=== PATIENT | female | born 1960 | race Caucasian/White ===

== ENCOUNTER 2017-01-11 20:10 | Inpatient (IN) | payer BC, OTHER ==
[~2017-01-11] VITALS: Ht 162.6 cm; Wt 60.8 kg
--- NOTE | ~2017-01-11 | EKG ---
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 : 1960 Requested By: Karol Berumen Order Number: [id number] MD: Eduardo Cardoza Measurements Intervals [place] Rate: 82 P: 43 OR: 138 QRS: 12 QRSD: 107 T: 11 QT: 393 QTc: 459 Interpretive Statements Sinus rhythm RSR' in V1 or V2, right VCD or RVH Borderline T abnormalities, anterior leads Compared to ECG 02/27/2010 14:50:39 Right ventricular hypertrophy now present RSR' in V1 or V2 now present T-wave abnormality now present Incomplete right bundle-branch block no longer present Electronically Signed On 01-12-2017 11:29:07 CDT by Eduardo Cardoza [email or web address] <ELECTRONICALLY SIGNED> By: Eduardo Cardoza MD 01/12/17 1129 45 45 Eduardo Cardoza MD /EPI
[~2017-01-11 20:10] MED LIST: AMOXICILLIN875 MG PO; AZITHROMYCIN 2250 MG PO; BACTRIM DS TAB1 EACH PO; CIPROFLOXACIN500 M1 PO; DIAZEPAM 2MG TAB2 MG; IBUPROFEN 200200 M1 PO; NOHOMEMEDICATIONS; NORCO 5-325 TA1 EACH PO; OSTEOBYFLEX; PYRIDIUM200 MG PO; VALIUM2 MG PO; VITAMIN B COMP1 EACH; ZOFRAN4 MG PO
[2017-01-11 20:57] LABS: HEMATOCRIT 31.4 % (37.0-47.0); HEMOGLOBIN 10.4 gm/dL (12.0-15.0); MCH 30.8 pg (26.0-34.0); MCHC 33.2 g/dL (28.0-37.0); MCV 92.8 fL (80.0-100.0); PLATELET COUNT 313 thou/uL (150-400); RBC 3.38 mil/uL (4.20-5.00); RDW 15.7 % (10.5-14.5); WBC 29.8 thou/uL (4.0-11.0)
[2017-01-11 20:58] LABS: MANUAL DIFF YES
[2017-01-11 21:16] LABS: ALBUMIN 2.3 g/dL (3.4-5.0); ALKALINE PHOSPHATASE 60 U/L (46-116); ANION GAP 8 mmol/L (7-16); BUN 11 mg/dL (7-18); CALCIUM 6.3 mg/dL (8.5-10.1); CHLORIDE 113 mmol/L (98-107); CO2 22 mmol/L (21-32); CREATININE 0.6 mg/dL (0.6-1.0); GLUCOSE 85 mg/dL (74-106); SGOT 13 U/L (15-37); SGPT 21 U/L (30-65); SODIUM 143 mmol/L (136-145); TOTAL BILIRUBIN 0.3 mg/dL (<0.1-1.0); TOTAL PROTEIN 4.3 g/dL (6.4-8.2); TROPONIN-I < 0.04 ng/mL (<0.04-0.07)
[2017-01-11 21:20] LABS: POTASSIUM 2.6 mmol/L (3.5-5.1)
[2017-01-11 21:28] LABS: ABSOLUTE NEUTROPHILS 27.7 thou/uL (1.4-8.2); TOTAL CELL COUNT 200
[2017-01-11 21:43] LABS: URINE BILIRUBIN NEGATIVE (Negative); URINE BLOOD NEGATIVE (Negative); URINE COLOR YELLOW; URINE GLUCOSE-RANDOM* NEGATIVE (Negative); URINE KETONES NEGATIVE (Negative); URINE NITRITE NEGATIVE (Negative); URINE PROTEIN (DIPSTICK) NEGATIVE (Negative); URINE SPECIFIC GRAVITY <= 1.005 (1.003-1.035); URINE UROBILINOGEN 0.2 E.U./dl (0.2-1.0)
[2017-01-11 23:18] VITALS: BP 113/62
[2017-01-11 23:30] VITALS: BP 119/52
[2017-01-12 02:35] LABS: CREATININE 0.9 mg/dL (0.6-1.0)
[2017-01-12 02:55] LABS: MAGNESIUM 1.4 mg/dL (1.8-2.4)
[2017-01-12 02:59] LABS: CALCIUM 8.7 mg/dL (8.5-10.1); POTASSIUM 3.8 mmol/L (3.5-5.1)
[2017-01-12 04:00] VITALS: BP 479/44
[2017-01-12 06:08] LABS: HEMATOCRIT 29.8 % (37.0-47.0); HEMOGLOBIN 10.1 gm/dL (12.0-15.0); MCH 31.8 pg (26.0-34.0); MCHC 33.9 g/dL (28.0-37.0); MCV 93.8 fL (80.0-100.0); PLATELET COUNT 259 thou/uL (150-400); RBC 3.18 mil/uL (4.20-5.00); RDW 15.8 % (10.5-14.5); WBC 26.3 thou/uL (4.0-11.0)
[2017-01-12 06:14] LABS: MANUAL DIFF YES
[2017-01-12 07:14] LABS: ANISOCYTOSIS SLIGHT; TOTAL CELL COUNT 100
[2017-01-12 08:15] LABS: MAGNESIUM 3.3 mg/dL (1.8-2.4); POTASSIUM 4.6 mmol/L (3.5-5.1); TROPONIN-I < 0.04 ng/mL (<0.04-0.07)
[2017-01-12 08:40] VITALS: BP 106/59
[2017-01-12] MEDS ORDERED: LEVAQUIN 500 M500 M2 PO (09:28)
[2017-01-12 10:38] VITALS: BP 106/59
== END 2017-01-12 11:10 | disposition home or self-care (01) | DRG 203 ==
LOC: ER 20:10 → EROBS 22:23 → 3W 01-12 00:04
PROVIDERS: Nurse Practitioner Family
DX: J20.9 Acute bronchitis, unspecified (principal); E87.6 Hypokalemia; D72.829 Elevated white blood cell count, unspecified; D72.825 Bandemia; F41.9 Anxiety disorder, unspecified; I10 Essential (primary) hypertension; H66.92 Otitis media, unspecified, left ear; Z85.3 Personal history of malignant neoplasm of breast

== ENCOUNTER 2018-02-15 17:49 | Emergency (ER) | payer BC, OTHER ==
[~2018-02-15] VITALS: Ht 162.6 cm; Wt 60.8 kg
[~2018-02-15 17:49] MED LIST changes: +LEVAQUIN 500 M500 M2 PO
[2018-02-15] MEDS ORDERED: ACETAMINOPHEN325 M3 PO (18:59)
[2018-02-15 19:01] VITALS: BP 120/71
[2018-02-15] MEDS ORDERED: MOBIC15 MG PO (19:15)
== END 2018-02-15 19:32 | disposition home or self-care (01) ==
LOC: ER 17:49
DX: M70.71 Other bursitis of hip, right hip (principal); F41.9 Anxiety disorder, unspecified; K58.9 Irritable bowel syndrome, unspecified; Z85.3 Personal history of malignant neoplasm of breast; Z88.1 Allergy status to other antibiotic agents; Y93.89 Activity, other specified

== ENCOUNTER 2018-03-05 14:46 | Emergency (ER) | payer BC, OTHER ==
[~2018-03-05] VITALS: Ht 162.6 cm; Wt 59.0 kg
--- NOTE | ~2018-03-05 | EKG ---
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 : 1960 Requested By: Shana Eubanks Order Number: [id number] MD: Eduardo Cardoza Measurements Intervals [place] Rate: 67 P: 55 WV: 156 QRS: -11 QRSD: 95 T: 31 QT: 431 QTc: 455 Interpretive Statements Sinus rhythm RSR' in V1 or V2, right VCD or RVH Compared to ECG 01/11/2017 20:46:31 T-wave abnormality no longer present Electronically Signed On 03-05-2018 15:42:52 ASSISTANT VICE PRESIDENT by Eduardo Cardoza [email or web address] <ELECTRONICALLY SIGNED> By: Eduardo Cardoza MD 03/05/18 1542 1520 1520 Eduardo Cardoza MD /EPI
[~2018-03-05 14:46] MED LIST changes: +ACETAMINOPHEN325 M3 PO; +MOBIC15 MG PO
[2018-03-05 15:15] LABS: ABSOLUTE NEUTROPHILS 4.1 thou/uL (1.4-8.2); EOSINOPHILS 3.3 % (0.0-3.0); HEMATOCRIT 39.5 % (37.0-47.0); HEMOGLOBIN 13.6 gm/dL (12.0-15.0); LYMPHOCYTES 26.8 % (24.0-44.0); MCH 31.7 pg (26.0-34.0); MCHC 34.4 g/dL (28.0-37.0); MCV 92.1 fL (80.0-100.0); MONOCYTES 6.5 % (1.0-8.0); PLATELET COUNT 243 thou/uL (150-400); POLYS 62.4 % (36.0-66.0); RBC 4.28 mil/uL (4.20-5.00); RDW 13.3 % (10.5-14.5); WBC 6.5 thou/uL (4.0-11.0)
[2018-03-05 15:21] LABS: CALCIUM 9.1 mg/dL (8.5-10.1); CREATININE 0.8 mg/dL (0.6-1.0); POTASSIUM 3.5 mmol/L (3.5-5.1)
[2018-03-05 15:27] LABS: APTT 26.1 Seconds (24.5-32.8); PROTIME 10.3 Seconds (9.3-11.4)
[2018-03-05 15:43] LABS: URINE BILIRUBIN NEGATIVE (Negative); URINE BLOOD TRACE (Negative); URINE CLARITY CLEAR; URINE COLOR YELLOW; URINE GLUCOSE-RANDOM* NEGATIVE (Negative); URINE KETONES NEGATIVE (Negative); URINE LEUKOCYTES-REFLEX NEGATIVE (Negative); URINE NITRITE-REFLEX NEGATIVE (Negative); URINE PROTEIN (DIPSTICK) NEGATIVE (Negative); URINE SPECIFIC GRAVITY <= 1.005 (1.005-1.035); URINE UROBILINOGEN 0.2 E.U./dl (0.2-1.0)
[2018-03-05 20:16] VITALS: BP 108/55
== END 2018-03-05 20:18 | disposition home or self-care (01) ==
LOC: ER 14:46
PROVIDERS: Emergency Medicine
DX: H53.9 Unspecified visual disturbance (principal); H53.8 Other visual disturbances; R42 Dizziness and giddiness; F41.9 Anxiety disorder, unspecified; Z85.3 Personal history of malignant neoplasm of breast; Z88.1 Allergy status to other antibiotic agents

== ENCOUNTER 2018-07-18 11:08 | Emergency (ER) | payer BC, OTHER ==
[~2018-07-18] VITALS: Ht 162.6 cm; Wt 59.9 kg
[2018-07-18 11:39] LABS: HEMATOCRIT 40.8 % (37.0-47.0); HEMOGLOBIN 13.7 gm/dL (12.0-15.0); MCH 30.6 pg (26.0-34.0); MCHC 33.7 g/dL (28.0-37.0); MCV 90.8 fL (80.0-100.0); RBC 4.49 mil/uL (4.20-5.00); RDW 14.1 % (10.5-14.5)
[2018-07-18 11:45] LABS: CALCIUM 9.8 mg/dL (8.5-10.1); CREATININE 0.9 mg/dL (0.6-1.0); POTASSIUM 3.8 mmol/L (3.5-5.1)
[2018-07-18 12:40] VITALS: BP 114/71
== END 2018-07-18 12:36 | disposition home or self-care (01) ==
LOC: ER 11:08
PROVIDERS: Emergency Medicine
DX: G43.809 Other migraine, not intractable, without status migrainosus (principal); Z88.1 Allergy status to other antibiotic agents; F41.9 Anxiety disorder, unspecified; K58.9 Irritable bowel syndrome, unspecified; Z85.3 Personal history of malignant neoplasm of breast

== ENCOUNTER 2019-01-30 10:33 | Emergency (ER) | payer BC, OTHER ==
[~2019-01-30] VITALS: Ht 162.6 cm; Wt 64.9 kg
[2019-01-30] MEDS ORDERED: CORTISPORIN OTI10 M2 OTIC (11:42)
[2019-01-30] MEDS ORDERED: ZPAK PO (11:42)
[2019-01-30 12:00] VITALS: BP 125/78
== END 2019-01-30 12:00 | disposition home or self-care (01) ==
LOC: ER 10:33
DX: J20.9 Acute bronchitis, unspecified (principal); J06.9 Acute upper respiratory infection, unspecified; H72.92 Unspecified perforation of tympanic membrane, left ear; H66.92 Otitis media, unspecified, left ear; Z85.3 Personal history of malignant neoplasm of breast; F41.9 Anxiety disorder, unspecified; Z88.1 Allergy status to other antibiotic agents

== ENCOUNTER 2020-09-02 14:29 | Emergency (ER) | payer BC, OTHER ==
[~2020-09-02] VITALS: Ht 162.6 cm; Wt 63.5 kg
[~2020-09-02 14:29] MED LIST changes: +CORTISPORIN OTI10 M2 OTIC; +ZPAK PO
[2020-09-02] MEDS ORDERED: IBUPROFEN200 M1 PO (14:50)
[2020-09-02] MEDS ORDERED: NYQUIL COLD AND FLU (14:51)
[2020-09-02 16:53] VITALS: BP 144/79
== END 2020-09-02 17:11 | disposition home or self-care (01) ==
LOC: ER 14:29
DX: J06.9 Acute upper respiratory infection, unspecified (principal); Z20.822 Contact with and (suspected) exposure to COVID-19; Z85.3 Personal history of malignant neoplasm of breast; Z88.1 Allergy status to other antibiotic agents